=== PATIENT | male | born 1955 | race Caucasian/White ===

== ENCOUNTER → 2017-05-18 15:53 | Outpatient (CLI) | payer BC | END | disposition home or self-care (01) | LOC: D.CT 15:53 | DX: R10.9 Unspecified abdominal pain (principal) ==

== ENCOUNTER → 2017-06-02 13:39 | Outpatient (CLI) | payer BC | END | disposition home or self-care (01) | LOC: D.CT 13:39 | DX: K57.20 Diverticulitis of large intestine with perforation and abscess without bleeding (principal) ==

== ENCOUNTER 2017-06-07 11:30 | Inpatient (IN) | payer BC ==
[~2017-06-07] VITALS: Ht 177.8 cm; Wt 104.3 kg
--- NOTE | ~2017-06-07 | HP ---
PATIENT: AMBER STACY MEDICAL RECORD: [id number] ACCOUNT: [id number] LOCATION:D[facility] [id number] : 53 ADMISSION DATE: 06/07/17 HISTORY AND PHYSICAL EXAMINATION HISTORY OF PRESENT ILLNESS: A 61-year-old gentleman. He presented to the office today with worsening abdominal pain and discomfort. He has been treating diverticulitis as an outpatient for the last couple of weeks now and last CT, although there was some improvement that was done on June 02 that still showed that there was a little diverticular abscess fluid collection superior to the sigmoid colon. Because of the slightly worsening of symptoms and ongoing issues, we will put him in the hospital for general surgery, interventional radiology consultation, and IV antibiotics. PAST MEDICAL HISTORY: He does have a past medical history rather that is significant for diverticulitis flareups in the past. He also has a history of diabetes mellitus, hypertension, hyperlipidemia. HOME MEDICATIONS: Include lisinopril 10 mg daily, metformin 500 mg b.i.d., Crestor 5 mg daily. He has been on oral Levaquin, metronidazole and hydrocodone p.r.n. for pain, just in the last week or 2 weeks now. FAMILY HISTORY: Father with myocardial infarction and mother had breast cancer. SOCIAL HISTORY: Denies tobacco, alcohol or drug use. He is . No significant surgical history. REVIEW OF SYSTEMS: CONSTITUTIONAL: There was fevers and he has not had fevers over the last week or so. HEENT: Denies any visual or auditory changes. No sore throat, rhinorrhea or dysphagia. CARDIOPULMONARY: Denies any chest pain, palpitations, orthopnea. No cough or hemoptysis. PULMONARY: No history of asthma, COPD. No cough or hemoptysis. GASTROINTESTINAL: Ongoing abdominal discomfort, mostly left lower quadrant, suprapubic area. Denies diarrhea or melena or hematochezia, has had some nausea. GENITOURINARY: Denies any dysuria or hematuria. MUSCULOSKELETAL: No joint swelling or erythema. NEUROLOGIC: No history of CVA, syncope or seizure. PHYSICAL EXAMINATION: VITAL SIGNS: Today, weight is 228, blood pressure 130/74, pulse of 80, respiration 18, temperature 98.4. HEENT: PERRLA, EOMI. Pharynx clear. NECK: Supple. No JVD or adenopathy, no thyromegaly. HEART: Regular rate and rhythm. No murmurs, rubs or gallops. LUNGS: Clear with no rhonchi, rales or wheezing. ABDOMEN: Soft, normoactive bowel sounds. He was tender to palpation in the left lower quadrant and suprapubic area to palpation with no rebound, guarding or rigidity. EXTREMITIES: No clubbing, cyanosis or edema. NEUROLOGICAL: Grossly intact. HISTORY AND PHYSICAL [id number] AMBER STACY ASSESSMENT AND PLAN: 1. Diverticulitis with a diverticular abscess. We are going to admit the patient. Repeat CT scan today. IV fluid, IV antibiotic, hold off on his metformin for now, we will use sliding scale insulin, consult general surgery, interventional radiology. TRANSINT:[id number] Voice Confirmation ID: [id number] DOCUMENT ID: [id number] VICKY SMALLS DO CC: [id number] DICTATION DATE: 06/07/17 1136 PATIENT CARRIER: 06/07/17 1224 ADM IN [id number] [place] [address]
--- NOTE | 2017-06-07 12:14 | NUR ---
RECEIVED TO ROOM 2226 AT THIS TIME FROM 'S OFFICE VIA WHEELCHAIR. AT BEDSIDE. 20G IV SITED TO PT'S RIGHT HAND X1 ATTEMPT. PT TOLERATED WITHOUT COMPLAINTS. ASSESSMENT AND HISTORY OBTAINED PER FLOWSHEET. CARE PLAN AND ROOM ORIENTATION REVIEWED WITH PT AND . DENIES QUESTIONS OR CONCERNS. REMAINS NPO FOR CT SCAN OF THE ABOMEN. CALL LIGHT IN REACH. WILL CONTINUE WITH PLAN OF CARE.
[2017-06-07 12:16] VITALS: BP 154/87; BMI 33.0
[2017-06-07 12:25] LABS: BASOPHILS 0.2 % (0-2); EOSINOPHILS 0.4 % (0-7); HEMOGLOBIN 14.9 g/dL (13.5-17.5); IMMATURE GRANULOCYTES 0.4 % (0-5); LYMPHOCYTES 9.6 % (15-50); MCHC 33.1 g/dL (31.0-37.0); MCV 90.7 fL (80.0-100.0); NEUTROPHILS 81.4 % (40-80); PLATELET COUNT 234 10x3/uL (130-400); RBC 4.96 10x6/uL (4.20-6.10); RDW 14.1 % (11.5-14.5); WBC 10.6 10x3/uL (4.8-10.8)
[2017-06-07 12:45] LABS: ALBUMIN 3.2 g/dL (3.4-5.0); ALKALINE PHOSPHATASE 52 U/L (46-116); ALT (SGPT) 31 U/L (10-68); BILIRUBIN - TOTAL 0.47 mg/dL (0.2-1.3); CALC OSMOLALITY 269 mosm/kg (275-300); CALCIUM 8.6 mg/dL (8.5-10.1); CARBON DIOXIDE 30.8 mmol/L (21.0-32.0); CHLORIDE - SERUM 98 mmol/L (98-107); CREATININE - SERUM 0.9 mg/dL (0.6-1.3); GLUCOSE 126 mg/dL (74-106); POTASSIUM - SERUM 4.3 mmol/L (3.5-5.1); PROTEIN - SERUM 8.1 g/dL (6.4-8.2); SODIUM 135 mmol/L (136-145); UREA NITROGEN 8 mg/dL (7-18); eGFR NON AFRICAN AMERICAN > 90 mL/min (90-120)
[2017-06-07 12:49] LABS: APTT 43.1 SECONDS (22.8-39.4)
[2017-06-07 13:04] LABS: INR 1.24 (0.85-1.17); PROTIME 15.5 SECONDS (11.6-15.0)
[2017-06-07 13:24] LABS: HEMOGLOBIN A1C 6.6 % (4.8-6.0)
--- NOTE | 2017-06-07 13:37 | NUR ---
TAKEN TO CT SCAN AT THIS TIME.
--- NOTE | 2017-06-07 13:50 | NUR ---
BACK TO ROOM AT THIS TIME. MEDICATIONS STARTED PER ORDERS. IV TO RIGHT HAND REMAINS PATENT. CALL LIGHT IN REACH. WILL CONTINUE WITH PLAN OF CARE.
[2017-06-07] MEDS ORDERED: GLUCOPHAGE500 MG PO (14:41)
[2017-06-07] MEDS ORDERED: LISINOPRIL10 MG PO (14:43)
[2017-06-07] MEDS ORDERED: CRESTOR5 MG PO (14:43)
[2017-06-07] MEDS ORDERED: LEVAQUIN750 MG PO (14:44)
[2017-06-07] MEDS ORDERED: FLAGYL500 MG PO (14:44)
[2017-06-07 16:42] VITALS: BP 133/85
--- NOTE | 2017-06-07 17:00 | NUR ---
MADE NPO AT THIS TIME PER DR WEBSTER'S ORDER. DENIES NEEDS AT THIS TIME. CALL LIGHT IN REACH, WILL CONTINUE WITH PLAN OF CARE.
[2017-06-07 20:00] VITALS: BP 154/81
[2017-06-08] VITALS: BP 143/80
--- NOTE | 2017-06-08 00:20 | NUR ---
PATIENT IS AWAKE, ALERT AND ORIENTED X'S 4. RESPIRATIONS ARE EVEN AND UNLABORED ON ROOM AIR. NO SIGNS OF DISTRESS NOTED. BED IN LOWEST POSITION, CALL LIGHT IN REACH. BED RAILS UP X'S 2. PATIENT DENIES NEEDS.
[2017-06-08 04:00] VITALS: BP 157/93
[2017-06-08 04:33] LABS: BASOPHILS 0.3 % (0-2); HEMATOCRIT 40.1 % (42.0-54.0); HEMOGLOBIN 13.4 g/dL (13.5-17.5); IMMATURE GRANULOCYTES 0.3 % (0-5); LYMPHOCYTES 27.6 % (15-50); MCH 30.1 pg (26.0-34.0); MCHC 33.4 g/dL (31.0-37.0); MCV 90.1 fL (80.0-100.0); MEAN PLATELET VOLUME 9.3 fL (7.4-10.4); MONOCYTES 13.5 % (2-11); NEUTROPHILS 57.3 % (40-80); PLATELET COUNT 216 10x3/uL (130-400); RBC 4.45 10x6/uL (4.20-6.10); RDW 14.3 % (11.5-14.5)
[2017-06-08 04:37] LABS: WBC 6.7 10x3/uL (4.8-10.8)
[2017-06-08 04:47] LABS: ALBUMIN 2.7 g/dL (3.4-5.0); ALKALINE PHOSPHATASE 42 U/L (46-116); CALC OSMOLALITY 276 mosm/kg (275-300); CALCIUM 8.4 mg/dL (8.5-10.1); CARBON DIOXIDE 31.7 mmol/L (21.0-32.0); CHLORIDE - SERUM 103 mmol/L (98-107); CREATININE - SERUM 0.8 mg/dL (0.6-1.3); GLUCOSE 117 mg/dL (74-106); SODIUM 139 mmol/L (136-145); UREA NITROGEN 6 mg/dL (7-18); eGFR NON AFRICAN AMERICAN > 90 mL/min (90-120)
[2017-06-08 04:50] LABS: ALT (SGPT) 23 U/L (10-68)
--- NOTE | 2017-06-08 08:15 | NUR ---
ASSESSMENT PER FLOW SHEET.PT WITHOUT DISTRES.DR. WEBSTER TO SEE PT. CLEAR LIQUID DIET OK. PT STATES PAIN 5/10 SCALE TO ABDOMEN.PT STAES INT AND FEELS LIKE GAS PAIN.MEDS ORDERED PER DEC.CALL LIGHT IN REACH.
[2017-06-08 08:54] VITALS: BP 153/103
[2017-06-08 11:55] VITALS: BP 153/89
[2017-06-08 14:57] VITALS: Ht 177.8 cm; Wt 104.3 kg
[2017-06-08 15:48] VITALS: BP 157/96
--- NOTE | 2017-06-08 18:02 | NUR ---
REMAINS WITHOUT NEEDS,TOLERATING CLEAR LIQUID DIET. AT BEDSIDE.CONT PLAN OF CARE
[2017-06-08] MEDS ORDERED: PROTONIX40 MG PO (19:17)
[2017-06-08 20:00] VITALS: BP 161/94
--- NOTE | 2017-06-08 22:00 | NUR ---
PATIENT RESTING IN BED AND DENIES NEEDS AT THIS TIME. BED IN LOWEST POSITION AND CALL LIGHT WITHIN REACH. ENCOURAGED THE PATIENT TO CALL IF HE HAS NEEDS.
[2017-06-09] VITALS: BP 165/96
[2017-06-09 04:00] VITALS: BP 142/88
[2017-06-09 05:37] LABS: BASOPHILS 0.6 % (0-2); EOSINOPHILS 2.1 % (0-7); HEMATOCRIT 41.7 % (42.0-54.0); HEMOGLOBIN 13.6 g/dL (13.5-17.5); IMMATURE GRANULOCYTES 0.1 % (0-5); LYMPHOCYTES 27.1 % (15-50); MCH 29.8 pg (26.0-34.0); MCHC 32.6 g/dL (31.0-37.0); MCV 91.2 fL (80.0-100.0); MEAN PLATELET VOLUME 9.4 fL (7.4-10.4); NEUTROPHILS 58.1 % (40-80); PLATELET COUNT 210 10x3/uL (130-400); RBC 4.57 10x6/uL (4.20-6.10); RDW 14.4 % (11.5-14.5); WBC 7.2 10x3/uL (4.8-10.8)
[2017-06-09 06:28] LABS: ALBUMIN 2.8 g/dL (3.4-5.0); ALKALINE PHOSPHATASE 39 U/L (46-116); ALT (SGPT) 28 U/L (10-68); BILIRUBIN - TOTAL 0.53 mg/dL (0.2-1.3); CALC OSMOLALITY 276 mosm/kg (275-300); CALCIUM 8.1 mg/dL (8.5-10.1); CARBON DIOXIDE 29.3 mmol/L (21.0-32.0); CHLORIDE - SERUM 104 mmol/L (98-107); CREATININE - SERUM 0.7 mg/dL (0.6-1.3); GLUCOSE 117 mg/dL (74-106); POTASSIUM - SERUM 4.5 mmol/L (3.5-5.1); PROTEIN - SERUM 6.9 g/dL (6.4-8.2); SODIUM 140 mmol/L (136-145); UREA NITROGEN 5 mg/dL (7-18); eGFR NON AFRICAN AMERICAN > 90 mL/min (90-120)
--- NOTE | 2017-06-09 07:23 | NUR ---
CM MET WITH PATIENT REGARDING D/C NEEDS AND PLANS. PATIENT STATED HE IS AND HIS (ABHINAV) WILL DRIVE HIM HOME AT DISCHARGE. PATIENT STATED HE HAS NO STEPS TO ENTER HOME AND A STAIRCASE INSIDE HOME W/RAILS. PATIENT STATED HE IS INDEPENDENT WITH HIS CARE AND HAS A BUILT IN SHOWER CHAIR, BS COMMODE, AND CANE AT HOME IF NEEDED. PATIENTS PCP IS DR. SMALLS AND PHARMACY IS [facility]. PATIENT SIGNED THE ALESHA FORM FOR [facility]. PATIENT IS NEEDING IV ABX FOR [address] SMALLS. CM WILL SEND THE ORDER TO [facility] TODAY. CM WILL CONTINUE TO FOLLOW PATIENT WITH D/C NEEDS AND PLANS. PCP DR. SERINA URBAN AT [facility]- [phone] [facility]- [phone] ABHINAV () [phone]
[2017-06-09 08:53] VITALS: BP 146/98
[2017-06-09] MEDS ORDERED: MERREM 1 GM/NS 11 G1 IV (12:08)
--- NOTE | 2017-06-09 12:11 | NUR ---
CM REASSESSMENT NOTE: PATIENT IS DISCHARGING HOME TODAY/ DRIVING. [facility] WILL SEE PATIENT TODAY FOR IV ABX TEACHING. MAKENZIE BLANTON IS NOTIFYING BREEZY WITH TIME OF DELIVERY OF ABX. CM NOTIFIED BOTH BREEZY AND MAKENZIE BLANTON REGARDING PATEINTS MIDLINE PLACEMENT.
[2017-06-09] MEDS ORDERED: PROTONIX40 MG PO (12:21)
[2017-06-09] MEDS ORDERED: LISINOPRIL10 MG PO (12:21)
[2017-06-09] MEDS ORDERED: GLUCOPHAGE500 MG PO (12:22)
[2017-06-09] MEDS ORDERED: CRESTOR5 MG PO (12:22)
--- NOTE | 2017-06-09 14:33 | NUR ---
DISCHARGE INSTRUCTIONS,STATES UNDERSTANDING.IV DCD WITH CATH INTACT.LEFT UNIT VIA WHEELCHAIR
== END 2017-06-09 14:34 | disposition home health service (06) | DRG 392 ==
LOC: D.MS 11:30
PROVIDERS: ADMIT Family Medicine
DX: K57.20 Diverticulitis of large intestine with perforation and abscess without bleeding (principal); N13.30 Unspecified hydronephrosis; E11.9 Type 2 diabetes mellitus without complications; I10 Essential (primary) hypertension; E78.5 Hyperlipidemia, unspecified

== ENCOUNTER → 2017-06-21 08:42 | Outpatient (CLI) | payer BC ==
[2017-06-08 14:57] VITALS: BMI 33.0
[~2017-06-21 08:42] MED LIST: CRESTOR5 MG PO; FLAGYL500 MG PO; GLUCOPHAGE500 MG PO; LEVAQUIN750 MG PO; LISINOPRIL10 MG PO; MERREM 1 GM/NS 11 G1 IV; PROTONIX40 MG PO
== END | disposition home or self-care (01) ==
LOC: D.CT 06-17 11:30
DX: K57.81 Diverticulitis of intestine, part unspecified, with perforation and abscess with bleeding (principal)

== ENCOUNTER 2017-06-23 05:11 | Inpatient (IN) | payer BC ==
[2017-06-22 13:41] LABS: HEMATOCRIT 41.6 % (42.0-54.0); HEMOGLOBIN 13.7 g/dL (13.5-17.5); MCH 30.6 pg (26.0-34.0); MCHC 32.9 g/dL (31.0-37.0); MCV 93.1 fL (80.0-100.0); MEAN PLATELET VOLUME 9.5 fL (7.4-10.4); RBC 4.47 10x6/uL (4.20-6.10); RDW 13.7 % (11.5-14.5); WBC 6.4 10x3/uL (4.8-10.8)
[2017-06-22 13:54] LABS: CALC OSMOLALITY 285 mosm/kg (275-300); CALCIUM 9.2 mg/dL (8.5-10.1); CARBON DIOXIDE 33.2 mmol/L (21.0-32.0); CHLORIDE - SERUM 104 mmol/L (98-107); CREATININE - SERUM 0.7 mg/dL (0.6-1.3); GLUCOSE 108 mg/dL (74-106); POTASSIUM - SERUM 4.5 mmol/L (3.5-5.1); SODIUM 144 mmol/L (136-145); UREA NITROGEN 7 mg/dL (7-18); eGFR NON AFRICAN AMERICAN > 90 mL/min (90-120)
[2017-06-23] VITALS (8 sets, daily range): BP systolic 106–147; BP diastolic 59–86; BMI 29.6; BMI 31.9
[~2017-06-23] VITALS: Ht 177.8 cm; Wt 100.7 kg
--- NOTE | 2017-06-23 01:30 | NUR ---
PATIENT'S OSTOMY BAG LEAKED THROUGH THE WAFFER. APPROXIMATELY 40-50ML OF BLOOD LEAKED OUT. CONTRACT ATTORNEY AND I CLEANED UP PATIENT, CHANGED HIS GOWN AND THE FLOOR. CHANGED PATIENT'S OSTOMY WAFFER AND BAG. ASSISTED PATIENT BACK TO BED. HE DENIES FURTHER NEEDS AT THIS TIME.
--- NOTE | 2017-06-23 14:13 | NUR ---
DR STAFFORD FINISHED AT 1340. DR. WEBSTER IN AT THIS TIME. SECOND TIME OUT FOR AT 1344.
--- NOTE | 2017-06-23 17:40 | NUR ---
RECEIVED TO ROOM 2208 FROM RECEOVERY ROOM. LONG CATH LEAKING SO LINENS CHANGED WITH ASSISTANCE FROM RECOVERY NURSE. RLQ ISATU DRAIN WITH DRS INTACT. LLQ COLOSTOMY. MIDLINE INCISION. CALL LIGHT IN REACH.
--- NOTE | 2017-06-23 18:00 | NUR ---
IV FLUIDS, IV ABX, AND MORPHINE ANESTHESIOLOGY RESIDENT INITIATED. AT BEDSIDE. CALL LIGHT IN REACH. VSS. SCDs TO BLE. WILL CONTINUE WITH PLAN OF CARE.
--- NOTE | 2017-06-23 20:00 | NUR ---
PATIENT RESTING QUIETLY WITH EYES CLOSED. RESPIRATIONS EVEN AND UNLABORED ON ROOM AIR. WOKE PATIENT UP TO COMPLETE ASSESSMENT. PATIENT AROUSED EASILY. PATIENT STATED "WILL YOU PUSH MY PAIN BUTTON." I EXPLAINED TO THE PATIENT THAT HE IS THE ONLY ONE ALLOWED TO PUSH THE BUTTON, AND EXPLAINED SAFETY REASONS. HE VERBALIZED UNDERSTANDING AND HE PUSHED THE SALES RELATIONSHIP MANAGER BUTTON. EMPTIED 60ML OF BLOODY DRAINAGE FROM ISATU DRAIN. THERE IS THIN RED BLOODY DRAINAGE PRESENT IN THE OSTOMY BAG- DID NOT EMPTY, APPEARS TO BE ABOUT 10ML. LONG CATHETER DRAINING TO GRAVITY, ABOUT 600ML IN COLLECTION BAG, URINE IS LIGHT RED IN COLOR. SCDS ARE ON BILATERAL LEGS. BED ALARM ON. PATIENT DENIES NEEDS AT THIS TIME.
--- NOTE | 2017-06-23 23:25 | NUR ---
RESTING QUIETLY WITH EYES CLOSED. NO SIGNS OF DISTRESS NOTED. HOB 30 DEGREES. BED IN LOWEST POSITION, CALL LIGHT IN REACH. BED RAILS UP X'S 2.
--- NOTE | 2017-06-23 23:54 | NUR ---
EMPTIED 20ML FROM ISATU DRAIN. COMPRESSED. PATIENT DENIES NEEDS.
[2017-06-24] VITALS: BP 148/88
--- NOTE | 2017-06-24 | NUR ---
SPOKE WITH PATIENT ABOUT AMBULATING IN THE BORDEN. HE WAS AGREEABLE. HIS GAIT IS STEADY. MINIMAL ASSIST REQUIRED. HE WALKED ABOUT 5 STEPS THEN STATED HE FEELS NAUSEOUS. PATIENT AMBULATING BACK TO HIS ROOM, AND SAT IN THE CHAIR. OFFERED HIM ZOFRAN, HE REFUSED. HE STATED HE IS FEELING BETTER NOW THAT HE IS SITTING DOWN. GAVE PATIENT HIS CALL LIGHT. HE DENIES FURTHER NEEDS AT THIS TIME.
[2017-06-24 04:00] VITALS: BP 153/85
[2017-06-24 05:37] LABS: BASOPHILS 0.1 % (0-2); EOSINOPHILS 0 % (0-7); HEMATOCRIT 38.4 % (42.0-54.0); HEMOGLOBIN 12.8 g/dL (13.5-17.5); IMMATURE GRANULOCYTES 0.2 % (0-5); LYMPHOCYTES 3.9 % (15-50); MCH 30.2 pg (26.0-34.0); MCHC 33.3 g/dL (31.0-37.0); MEAN PLATELET VOLUME 10.1 fL (7.4-10.4); MONOCYTES 4.5 % (2-11); NEUTROPHILS 91.3 % (40-80); PLATELET COUNT 273 10x3/uL (130-400); RBC 4.24 10x6/uL (4.20-6.10); RDW 14.1 % (11.5-14.5)
[2017-06-24 05:43] LABS: MCV 90.6 fL (80.0-100.0); WBC 19.1 10x3/uL (4.8-10.8)
[2017-06-24 05:48] LABS: ALBUMIN 2.8 g/dL (3.4-5.0); ALKALINE PHOSPHATASE 45 U/L (46-116); ALT (SGPT) 22 U/L (10-68); CALC OSMOLALITY 281 mosm/kg (275-300); CALCIUM 8.5 mg/dL (8.5-10.1); CARBON DIOXIDE 27.6 mmol/L (21.0-32.0); CHLORIDE - SERUM 103 mmol/L (98-107); CREATININE - SERUM 0.7 mg/dL (0.6-1.3); POTASSIUM - SERUM 4.2 mmol/L (3.5-5.1); PROTEIN - SERUM 7.1 g/dL (6.4-8.2); SODIUM 139 mmol/L (136-145); UREA NITROGEN 8 mg/dL (7-18); eGFR NON AFRICAN AMERICAN > 90 mL/min (90-120)
[2017-06-24 05:51] LABS: GLUCOSE 215 mg/dL (74-106)
--- NOTE | 2017-06-24 06:26 | OP ---
PATIENT NAME: AMBER STACY MEDICAL RECORD: [id number] :51 LOCATION:[facility] [place] ADMISSION DATE:06/23/17 SURGEON: BECKY WEBSTER MD DATE OF OPERATION: 06/23/2017 SURGEON: Becky Webster MD. PREOPERATIVE DIAGNOSIS: Diverticulitis with intraabdominal abscess. POSTOPERATIVE DIAGNOSES: 1. Diverticulitis with intraabdominal abscess. 2. Peritonitis. ANESTHESIA: General. COMPLICATIONS: None. SPECIMENS: Sigmoid colon. Case was grossly contaminated. ESTIMATED BLOOD LOSS: 150 cc. OPERATION: Laparoscopic mobilization of splenic flexure, laparoscopic sigmoid colectomy with end colostomy (Isabel's procedure). OPERATIVE COURSE: After consent was obtained, the patient was taken to the operating room and placed in the supine position on the operating table. Next, general anesthesia was given via endotracheal intubation after a timeout was taken to confirm the correct patient and procedure. Prior to begin the procedure, cystoscopy and ureteral stent insertion was performed by Dr. Green. The abdomen was prepped and draped in typical sterile fashion and Ioban dressing was placed. Local anesthetic was injected just below the umbilicus. A stab incision was made with 11-blade scalpel. Using a 5-mm bladeless optical trocar, the abdomen was entered under direct laparoscopic vision. Adequate pneumoperitoneum was achieved. The abdominal cavity was inspected. No evidence of bowel injury. No evidence of bleeding. The sigmoid colon was densely, densely adherent to the left pelvic side wall and pelvis. At this time, all remaining trocars were placed, 5 mm trocar in the suprapubic position, 5-mm trocar in the right lower quadrant and 5-mm trocar in the left lower quadrant. As the sigmoid colon was attempted to be mobilized from the pelvic side wall, a large abscess was encountered, it was suctioned and irrigated. At this time, we started to our proximal laparoscopic, the descending colon was mobilized off the pelvic side wall. The white line of Toldt was taken using the Harmonic scalpel. This continued along to the level of the splenic flexure, mobilizing the splenic flexure. Next, a mesenteric window was created at the healthy appearing portion of the descending and sigmoid colon. At this time, the sigmoid colon was completely immobile by laparoscopy. At this time, a hand port was placed in the lower midline position to facilitate. The sigmoid colon was gradually removed from the pelvic side wall, combination of blunt dissection and electrocautery as well as Harmonic scalpel. Once the sigmoid colon was mobilized off the pelvic side wall, it was mobilized posteriorly. The ureteral stents were palpated, although they were not able to be identified post and within the retroperitoneum. At this time, the GelPort was removed. The sigmoid colon was extracorporealized. At the previous mesenteric window, the descending OPERATIVE REPORT [id number] STACY,AMBER colon was transected using the 75-mm linear cutting stapler with a green load stapler. The mesentery was taken with the Harmonic scalpel. Meticulous dissection continued until the rectum was identified. Once the rectum was identified, a second firing of the 75-mm linear cutting stapler was performed. The remaining portion of mesentery was taken with Harmonic scalpel and the sigmoid colectomy specimen was passed off the field and sent for permanent pathology. There were multiple diffuse bleeding surfaces, the pelvis and pelvic side wall packed with Fibrillar and held in place for 10 minutes. Once we had control bleeding, the rectum was minimally mobilized. The suture line was reinforced with the 0 Prolene suture. A 6-inch tag was left in place to facilitate for later colostomy reversal. At this time, the abdomen was copiously irrigated and suctioned. Additional mesentery was taken to facilitate link for the colostomy. The abdominal cavity was copiously irrigated and suctioned. A ISATU drain was placed in the pelvis to the right lower quadrant trocar site. There is no evidence of bowel injury. No evidence of bleeding. The pelvic abscess appeared appropriately drained. There is no further purulent debris noted. At this time, the left lower quadrant trocar was removed. A circular skin incision was made. Dissection continued to the level of the external oblique fascia, cruciate incision was made. The muscles were gently split. The peritoneum was opened using electrocautery. The area was bluntly dilated. The Lidia was placed through the opening and grabbed the staple line of the descending colon. Descending colon was extracorporealized. At this time the sponge count was completed which was correct. Additional abdominal irrigation was performed. Incisional irrigation was performed. The GelPort was removed. The lower midline incision was closed with a #1 looped PDS. Skin was closed with mel. Trocar incisions were closed with mel. At this time, the ostomy was matured in a standard Karla fashion using 3-0 Vicryl suture. At the end of the case, all needle and instrument counts were correct. No complications occurred. The patient was extubated and transferred to the PACU in stable condition. TRANSINT:[id number] Voice Confirmation ID: [id number] DOCUMENT ID: [id number] BECKY WEBSTER MD at 0626 CC: [id number] DICTATION DATE: 06/23/17 164 RAND BUTTER: 06/24/17 0111 ADM IN [id number] [place] [address]
--- NOTE | 2017-06-24 07:30 | NUR ---
ASSESSMENT COMPLETE. IV TO L WRIST PATENT. LR INFUSING AT 100 CC/HR VIA PUMP. ADVANCED RESEARCH PROGRAMS DIRECTOR MORPHINE 1-10-10 IN USE FOR PAIN CONTROL. DRESSING INTACT TO LOWER ABDOMEN. ISATU X 1 TO R UPPER ABDOMEN. LONG PATENT DRAINING BLOODY URINE. MIDLINE TO R AC. SCDS IN USE TO BILAT LEGS.
[2017-06-24 07:59] VITALS: BP 163/93
--- NOTE | 2017-06-24 09:34 | OP ---
PATIENT NAME: AMBER STACY MEDICAL RECORD: [id number] :53 LOCATION:D[facility] [place] ADMISSION DATE:06/23/17 SURGEON: ELBERT STAFFORD MD DATE OF OPERATION: 06/23/2017 SURGEON: Elbert Stafford MD ANESTHESIA: General anesthesia by Toño Rincon CRNA. PREOPERATIVE DIAGNOSIS: Sigmoid diverticulitis. POSTOPERATIVE DIAGNOSIS: Sigmoid diverticulitis. PROCEDURES: Cystoscopy and bilateral ureteral stent insertion. FINDINGS: Obstructive BPH, single ureteral orifices bilaterally. No bladder tumors, trabeculated bladder. CLINICAL HISTORY: This is a 61-year-old male with history of diverticulitis, now comes for a hemicolectomy. Dr. Jean Baptiste has requested insertion of ureteral stents to assist during his surgery. DESCRIPTION OF PROCEDURE: The patient has been given induction of general anesthesia and he has been given his IV antibiotics. He was placed in the dorsal lithotomy position, prepped and draped. A 21-Vietnamese cystoscope with 30-degree lens was used for visualization using normal saline for irrigation. The penile urethra was nonobstructive and no lesions are found. He has a vascular obstructive BPH. Going into the bladder, single ureteral orifices were found. A 5-Vietnamese open-ended ureteral catheters were placed up to the renal pelvis level on each side. The cystoscope was then removed, leaving the catheter in place. A 16-Vietnamese Smith catheter was then inserted into the bladder. The balloon was inflated with 10 cc of sterile water. An adapter allowed the ureteral catheters to draining into the Smith catheter drainage channel in bag. At the end of the case, Dr. Jean Baptiste can remove the ureteral stent by pulling them out. TRANSINT:[id number] Voice Confirmation ID: [id number] DOCUMENT ID: [id number] ELBERT STAFFORD MD at 0934 CC: [id number] DICTATION DATE: 06/23/17 1333 WEB MARKETING STRATEGIST: 06/23/17 1840 ADM IN [id number] [place] [id number]
--- NOTE | 2017-06-24 10:30 | NUR ---
COLOSTOMY LEAKING AROUND SIDE OF WAFER. CHIO,WOUND CARE NURSE, BY TO CHANGE COLOSTOMY WAFER AND BAG. FAMILY AT BEDSIDE.
[2017-06-24 10:43] VITALS: Ht 177.8 cm; Wt 100.7 kg
--- NOTE | 2017-06-24 10:46 | NUR ---
Called to pt room d/t leaking ostomy appliance. Removed old appliance and cleaned and dried skin. Applied skin protectant to surrounding skin and used stoma paste to fill crevices/wrinkles in skin. Cut wafer to 2-1/4" and applied over fistula/attached bag. Pt tolerated well. Education provided on skin care and discussed the stoma (red/beefy in color, will shrink in size as healing begins) Pt and voiced understanding. Will continue monitoring.
[2017-06-24 11:46] VITALS: BP 149/85
--- NOTE | 2017-06-24 14:00 | NUR ---
TOLERATING CLEAR LIQUIDS IN SMALL AMOUNTS. DENIES ANY NEEDS AT THIS TIME.
--- NOTE | 2017-06-24 18:13 | NUR ---
RESTING QUIETLY IN BED. CONTINUES TO TOLERATE CLEAR LIQUIDS IN SMALL AMOUNTS. SMALL AMOUNT OF BROWNISH LIQUID NOTED IN COLOSTOMY BAG. NO LEAKAGE NOTED AROUND COLOSTOMY WAFER AT THIS TIME.
[2017-06-24 20:00] VITALS: BP 126/70
[2017-06-25] VITALS: BP 135/72
--- NOTE | 2017-06-25 01:09 | NUR ---
FLUSHED MIDLINE WITH 10ML SALINE FLUSH. READILY FLUSHED. CHANGED THE DRESSING, STERILE TECHNIQUE MAINTAINED.
[2017-06-25 03:43] VITALS: BP 158/77
[2017-06-25 05:44] LABS: HEMOGLOBIN 10.9 g/dL (13.5-17.5); MCV 90.9 fL (80.0-100.0); MEAN PLATELET VOLUME 9.9 fL (7.4-10.4); PLATELET COUNT 240 10x3/uL (130-400); RBC 3.63 10x6/uL (4.20-6.10); RDW 14.4 % (11.5-14.5); WBC 20.1 10x3/uL (4.8-10.8)
[2017-06-25 05:55] LABS: ALBUMIN 2.5 g/dL (3.4-5.0); ALKALINE PHOSPHATASE 44 U/L (46-116); CALCIUM 8.2 mg/dL (8.5-10.1); CARBON DIOXIDE 28.9 mmol/L (21.0-32.0); CHLORIDE - SERUM 102 mmol/L (98-107); CREATININE - SERUM 0.6 mg/dL (0.6-1.3); POTASSIUM - SERUM 3.9 mmol/L (3.5-5.1); PROTEIN - SERUM 6.4 g/dL (6.4-8.2); SODIUM 138 mmol/L (136-145); UREA NITROGEN 7 mg/dL (7-18); eGFR NON AFRICAN AMERICAN > 90 mL/min (90-120)
[2017-06-25 05:57] LABS: ALT (SGPT) 16 U/L (10-68); CALC OSMOLALITY 275 mosm/kg (275-300); GLUCOSE 140 mg/dL (74-106)
[2017-06-25 06:37] LABS: LYMPHOCYTES 8 % (15-50); MONOCYTES 7 % (2-11); NEUTROPHILS 79 % (40-80); PLATELET ESTIMATE NORMAL
--- NOTE | 2017-06-25 07:30 | NUR ---
ASSESSMENT COMPLETE. IV TO L WRIST PATENT. LR INFUSING AT 100 CC/HR VIA PUMP. RED CAP MORPHINE 1-10-10 IN USE FOR PAIN CONTROL. R MIDLINE SL. DRESSING INTACT TO LOWER ABDOMEN. ISATU X 1 TO R ABDOMEN. COLOSTOMY TO L ABDOMEN. DENIES ANY NEEDS AT PRESENT.
[2017-06-25 08:18] VITALS: BP 157/94
--- NOTE | 2017-06-25 08:40 | NUR ---
LONG CATHETER DC'D. CATHETER TIP INTACT.
--- NOTE | 2017-06-25 10:30 | NUR ---
AMBULATING IN HALLWAY WITH FAMILY.
--- NOTE | 2017-06-25 12:52 | NUR ---
VOIDING WITHOUT DIFFICULTY. TOLERATING CLEAR LIQUID DIET. VISITING WITH FAMILY. DENIES ANY NEEDS AT THIS TIME.
[2017-06-25 13:03] VITALS: BP 131/79
--- NOTE | 2017-06-25 13:30 | NUR ---
Patient Name: AMBER STACY Admission Status: Elective Accout number: [id number] Admission Date: 06-23-2017 : 1955 Admission Diagnosis:DVTRCLI OF LG INT W PERFORATION AND ABSCESS W/O BLEEDIN Attending: BECKY WEBSTER Current LOS: 2 Anticipated DC Date: Planned Disposition: Home with Home Health Primary Insurance: [employer] OUT OF STATE Discharge Planning Comments: CM met with patient and (Polly) to assess discharge planning needs. Patient lives independently at home where he plans to return too. His Polly will be the dolly driver home. Patient does not use any DME, but is current with [employer] . Patient has 20 steps in his home, but states he vu not have any trouble with it. CM will continue to follow and assist as needed PCP: Serina Scruggs in [facility] [place] () [phone] [facility] Account Manager Education: Mariza Downs * Is the patient Alert and Oriented? Yes 0 * How many steps to enter\exit or inside your home? 20 0 * PCP SERINA 0 * Pharmacy [facility] * Preadmission Environment Home with Family 0 * ADLs Independent 0 * Equipment None 0 * List name and contact numbers for known caregivers / representatives who currently or will assist patient after discharge: POLLY () [phone] 0 * Community resources currently utilized Home Health 0 * Please name any agencies selected above. [facility] 0 * Additional services required to return to the preadmission environment? Yes 0 * Can the patient safely return to the preadmission environment? Yes 0 * Has this patient been hospitalized within the prior 30 days at any hospital? No 0 Grand Total: 0
--- NOTE | 2017-06-25 14:08 | NUR ---
NO CHANGES NOTED AT PRESENT. NOTIFIED RESPIRATORY THERAPIST THAT PATIENT DOES NOT WANT TO BE WOKE UP DURING THE NIGHT FOR BREATHING TREATMENTS.
[2017-06-25 16:21] VITALS: BP 130/74
--- NOTE | 2017-06-25 17:32 | NUR ---
DENIES ANY NEEDS AT THIS TIME. CONTINUES VOIDING WITHOUT DIFFICULTY.
--- NOTE | 2017-06-25 18:30 | NUR ---
COMPLAINING OF FEELING HOT. TEMP 100.1 ORALLY. REMINDED ON USE OF IS. BLANKET REMOVED AND ROOM COOLED.
[2017-06-25 20:00] VITALS: BP 139/82
--- NOTE | 2017-06-25 23:15 | NUR ---
PATIENT REQUESTED TO BE LEFT ALONE THROUGH THE NIGHT SO HE CAN GET SOME SLEEP. HE STATED THAT HE DOESN'T NEED ANYTHING BUT SLEEP. HE INFORMED THE SLITTER CREASER SLOTTER OPERATOR THAT HE WANTED TO BE LEFT ALONE.
[2017-06-26 04:00] VITALS: BP 165/74
[2017-06-26 06:11] LABS: BASOPHILS 0.1 % (0-2); EOSINOPHILS 0.4 % (0-7); HEMATOCRIT 33.2 % (42.0-54.0); HEMOGLOBIN 10.9 g/dL (13.5-17.5); IMMATURE GRANULOCYTES 0.4 % (0-5); LYMPHOCYTES 8.8 % (15-50); MCH 30.1 pg (26.0-34.0); MCHC 32.8 g/dL (31.0-37.0); MCV 91.7 fL (80.0-100.0); MONOCYTES 6.4 % (2-11); NEUTROPHILS 83.9 % (40-80); PLATELET COUNT 242 10x3/uL (130-400); RBC 3.62 10x6/uL (4.20-6.10); RDW 14.1 % (11.5-14.5); WBC 14.1 10x3/uL (4.8-10.8)
[2017-06-26 06:25] LABS: ALBUMIN 2.4 g/dL (3.4-5.0); ALKALINE PHOSPHATASE 49 U/L (46-116); ALT (SGPT) 14 U/L (10-68); CALC OSMOLALITY 276 mosm/kg (275-300); CALCIUM 8.3 mg/dL (8.5-10.1); CARBON DIOXIDE 30.7 mmol/L (21.0-32.0); CHLORIDE - SERUM 102 mmol/L (98-107); CREATININE - SERUM 0.6 mg/dL (0.6-1.3); GLUCOSE 141 mg/dL (74-106); POTASSIUM - SERUM 3.7 mmol/L (3.5-5.1); PROTEIN - SERUM 6.7 g/dL (6.4-8.2); SODIUM 139 mmol/L (136-145); UREA NITROGEN 5 mg/dL (7-18); eGFR NON AFRICAN AMERICAN > 90 mL/min (90-120)
--- NOTE | 2017-06-26 06:49 | NUR ---
PATIENT IN BED WITH IV INTACT. NO COMPLAINTS OR SIGNS OF DISTRESS AT THIS TIME. CALL LIGHT WITHIN REACH.
--- NOTE | 2017-06-26 08:02 | NUR ---
RESTING, DENIES NEEDS, BED LOWEST POSITION, CALL LIGHT IN REACH, WILL CONTINUE TO MONITOR
[2017-06-26 08:23] VITALS: BP 151/97
[2017-06-26 12:51] VITALS: BP 140/93
--- NOTE | 2017-06-26 12:59 | NUR ---
ISATU DRAIN PULLED, MINIMAL DISCOMFORT, WILL CONTINUE TO MONITOR
--- NOTE | 2017-06-26 16:53 | NUR ---
LYING IN BED,WITHOUT DISTRESS.DENIES NEEDS.CELL CHANGER USE INSTRUCTED FOR PAIN
[2017-06-26 17:03] VITALS: BP 132/72
[2017-06-26 21:18] VITALS: BP 167/97
--- NOTE | 2017-06-27 03:02 | NUR ---
PT RESTING QUIETLY, EYES CLOSED. RESP EVEN, UNLABORED. NO DISTRESS NOTED. CONTINUE FILTER TANK TENDER HELPER HEAD'S PLAN OF CARE.
[2017-06-27 04:04] VITALS: BP 150/90
[2017-06-27 05:15] LABS: BASOPHILS 0.3 % (0-2); EOSINOPHILS 1.3 % (0-7); HEMATOCRIT 34.5 % (42.0-54.0); HEMOGLOBIN 11.6 g/dL (13.5-17.5); IMMATURE GRANULOCYTES 0.1 % (0-5); LYMPHOCYTES 13.9 % (15-50); MCH 30.2 pg (26.0-34.0); MCHC 33.6 g/dL (31.0-37.0); MCV 89.8 fL (80.0-100.0); MONOCYTES 13.9 % (2-11); NEUTROPHILS 70.5 % (40-80); PLATELET COUNT 288 10x3/uL (130-400); RBC 3.84 10x6/uL (4.20-6.10); RDW 13.5 % (11.5-14.5)
[2017-06-27 05:17] LABS: WBC 7.1 10x3/uL (4.8-10.8)
[2017-06-27 05:40] LABS: ALBUMIN 2.3 g/dL (3.4-5.0); ALKALINE PHOSPHATASE 50 U/L (46-116); ALT (SGPT) 11 U/L (10-68); BILIRUBIN - TOTAL 0.97 mg/dL (0.2-1.3); CALC OSMOLALITY 271 mosm/kg (275-300); CALCIUM 8.3 mg/dL (8.5-10.1); CARBON DIOXIDE 30.4 mmol/L (21.0-32.0); CHLORIDE - SERUM 99 mmol/L (98-107); CREATININE - SERUM 0.6 mg/dL (0.6-1.3); GLUCOSE 130 mg/dL (74-106); POTASSIUM - SERUM 3.7 mmol/L (3.5-5.1); PROTEIN - SERUM 6.9 g/dL (6.4-8.2); SODIUM 136 mmol/L (136-145); eGFR NON AFRICAN AMERICAN > 90 mL/min (90-120)
--- NOTE | 2017-06-27 05:42 | NUR ---
IV IN LEFT WRIST LEAKING. REMOVED WITH CATHETER TIP INTACT. RE-SITED TO LEFT FA USING 20 GUAGE CATHETER IN ONE STICK. IV FLUIDS RE-STARTED.
[2017-06-27 05:44] LABS: UREA NITROGEN 7 mg/dL (7-18)
--- NOTE | 2017-06-27 07:30 | NUR ---
SLEEPING, AROUSES TO VOICE, DENIES NEEDS, BED LOWEST POSITION, CALL LIGHT IN REACH, WILL CONTINUE TO MONITOR
[2017-06-27 08:57] VITALS: BP 169/95
--- NOTE | 2017-06-27 09:40 | NUR ---
PATIENT ALERT IN MID ALONZO POSITION. NO SIGNS OF DISTRESS NOTED. FAMILY PRESENT. SIDE RAILS UP X2. BED IN LOW POSITION. CALL LIGHT IN REACH. BED IN LOW POSITION. DENIES NEEDS.
[2017-06-27 12:35] VITALS: BP 136/85
[2017-06-27] MEDS ORDERED: HYDROCODON-ACE1 EAC7 PO (14:19)
[2017-06-27] MEDS ORDERED: COLACE100 MG PO (14:19)
--- NOTE | 2017-06-27 16:11 | NUR ---
DISCHARGE PAPERS AND INSTRUCTIONS GIVEN TO PT AND , QUESTIONS ANSWERED, EDUCATED ON CHANGING COLOSTOMY BAG, IV REMOVED TIP INACT, DISCHARGED PER WC WITH BELONGINGS
--- NOTE | 2017-06-27 17:22 | NUR ---
LATE ENTRY 1445 PATIENT FOR DISCHARGE TO HOME W/ [facility]. PLAN FOR RESUMPTION OF SERVICES. CM SPOKE WITH THE SHIPPING TEAM LEADER NURSE, SALVADOR. REVIEWED REFERRAL. UPDATED CLINICAL. FAXED CLINICAL , DISCHARGE INSTRUCTION AND MEDICATIONS TO [phone]. PROVIDED CONTACT PHONE NUMBER FOR CM. SPOKE WITH PRIMARY NURSE, ARVIND, PATIENT WAS GIVEN HIS SECOND DOSE OF [place] PRIOR TO DISCHARGE TO HOME. PATIENT HAS HIS HOME IVAB AT HOME WHICH WERE PROVIDED BY [facility]. ARVIND WAS TO PROVIDE COLOSTOMY INTRUCTION AND COLOSTOMY SUPPLIES TO PATIENT PRIOR TO DISCHARGE. INSTRUCTION WAS GIVEN INITIALLY BY WOUND CARE NURSE ON 06/24/17.
--- NOTE | 2017-06-27 17:40 | NUR ---
PATIENT WILL BE SEEN ON Wednesday06/28/17 BY [facility] PER SALVADOR.
== END 2017-06-27 16:12 | disposition home health service (06) | DRG 330 ==
LOC: D.MS 05:11 → D.SDCHOLD 05:11 → D.MS 17:22
PROVIDERS: Anesthesiology; Urology; ADMIT Surgery
PROC: 0D1M4Z4 Bypass Descending Colon to Cutaneous, Percutaneous Endoscopic Approach (ICD-10-PCS; 2017-06-23)
PROC: 0DNL4ZZ Release Transverse Colon, Percutaneous Endoscopic Approach (ICD-10-PCS; 2017-06-23)
PROC: 0T788DZ Dilation of Bilateral Ureters with Intraluminal Device, Via Natural or Artificial Opening Endoscopic (ICD-10-PCS; principal; 2017-06-23 12:00)
PROC: 0DBN4ZZ Excision of Sigmoid Colon, Percutaneous Endoscopic Approach (ICD-10-PCS; 2017-06-23 12:00)
DX: K57.20 Diverticulitis of large intestine with perforation and abscess without bleeding (principal); N13.8 Other obstructive and reflux uropathy; N13.30 Unspecified hydronephrosis; E11.9 Type 2 diabetes mellitus without complications; I10 Essential (primary) hypertension; E78.5 Hyperlipidemia, unspecified; N40.1 Benign prostatic hyperplasia with lower urinary tract symptoms

== ENCOUNTER → 2017-08-13 09:17 | Outpatient (CLI) | payer BC ==
[2017-06-24 10:43] VITALS: BMI 31.8
[~2017-08-13 09:17] MED LIST changes: +COLACE100 MG PO; +CYCLOBENZAPRINE10 MG PO; +HYDROCODON-ACE1 EAC7 PO; +HYDROCODONE-APA1 TAB PO; +LEVAQUIN500 MG PO
== END | disposition home or self-care (01) ==
LOC: D.LAB 09:17
DX: Z12.5 Encounter for screening for malignant neoplasm of prostate (principal)

== ENCOUNTER → 2017-08-20 09:37 | Outpatient (CLI) | payer BC ==
[2017-06-24 10:43] VITALS: BMI 31.8
== END | disposition home or self-care (01) ==
LOC: D.US 08:30
DX: N13.30 Unspecified hydronephrosis (principal)

== ENCOUNTER → 2017-10-06 07:48 | Outpatient (CLI) | payer BC ==
[2017-06-24 10:43] VITALS: BMI 31.8
== END | disposition home or self-care (01) ==
LOC: D.CT 07:48
DX: K57.32 Diverticulitis of large intestine without perforation or abscess without bleeding (principal)

== ENCOUNTER 2017-10-15 05:56 | Day surgery (SDC) | payer BC ==
[~2017-10-15] VITALS: Ht 177.8 cm; Wt 110.0 kg
[~2017-10-15 05:56] MED LIST changes: -CYCLOBENZAPRINE10 MG PO; -HYDROCODONE-APA1 TAB PO; -LEVAQUIN500 MG PO
[2017-10-15 06:43] VITALS: BP 178/94; Ht 177.8 cm; Wt 110.0 kg
[2017-10-15 07:03] LABS: HEMATOCRIT 47.3 % (42.0-54.0); HEMOGLOBIN 15.4 g/dL (13.5-17.5); MCH 30.4 pg (26.0-34.0); MCHC 32.6 g/dL (31.0-37.0); MCV 93.3 fL (80.0-100.0); MEAN PLATELET VOLUME 9.8 fL (7.4-10.4); RBC 5.07 10x6/uL (4.20-6.10); RDW 13.7 % (11.5-14.5); WBC 6.1 10x3/uL (4.8-10.8)
[2017-10-15 07:23] LABS: CALC OSMOLALITY 280 mosm/kg (275-300); CALCIUM 8.8 mg/dL (8.5-10.1); CARBON DIOXIDE 31.9 mmol/L (21.0-32.0); CHLORIDE - SERUM 102 mmol/L (98-107); CREATININE - SERUM 0.9 mg/dL (0.6-1.3); GLUCOSE 161 mg/dL (74-106); POTASSIUM - SERUM 4.3 mmol/L (3.5-5.1); SODIUM 140 mmol/L (136-145); UREA NITROGEN 10 mg/dL (7-18); eGFR NON AFRICAN AMERICAN 90 mL/min (90-120)
--- NOTE | 2017-10-15 08:10 | NUR ---
COLONOSCOPY DONE VIA COLOSTOMY BAG.
--- NOTE | 2017-10-15 08:33 | NUR ---
PROCTOSCOPY DONE ALSO VIA RECTUM.
--- NOTE | 2017-10-15 12:33 | OP ---
PATIENT NAME: AMBER STACY MEDICAL RECORD: [id number] :51 LOCATION:D.[facility] ADMISSION DATE: SURGEON: BECKY WEBSTER MD DATE OF OPERATION: 10/15/2017 SURGEON: Becky Webster MD PREOPERATIVE DIAGNOSIS: Diverticulitis. POSTOPERATIVE DIAGNOSIS: Diverticulitis. PROCEDURE PERFORMED: Colonoscopy and proctoscopy. ANESTHESIA: Total intravenous anesthesia. COMPLICATIONS: None. SPECIMENS: None. Case was contaminated. OPERATIVE COURSE: After consent was obtained, the patient was taken to the endoscopy suite, timeout was taken to confirm the correct patient and procedure, total intravenous anesthesia was given. The colostomy appliance was removed, a colonoscopy was performed through the colostomy site, the scope was advanced to the cecum. The ileocecal valve was identified and pictured. Approximately 7 minutes was spent withdrawing the scope. There was 2-3 scattered diverticula noted. There were no masses, no polyps, no areas of bleeding. At this time, the patient was placed in the left lateral decubitus position. A flexible scope was placed through the rectum. It was advanced approximately 20 cm at which time the staple line was identified. The rectum appeared healthy. At this time, the scope was removed and the procedure was terminated. At the end of the procedure, all needle and instrument counts were correct. No complications occurred. The patient tolerated the procedure well and was transferred to the recovery room in satisfactory condition. TRANSINT:[id number] Voice Confirmation ID: [id number] DOCUMENT ID: [id number] BECKY WEBSTER MD at 1233 CC: [id number] DICTATION DATE: 10/15/17840 TELESALES AGENT: 10/15/17 0920 [place] [id number] [place] [id number]
--- NOTE | 2017-10-15 17:23 | NUR ---
0950-PT. ESCORTED VIA WHEELCHAIR TO PERSONAL CAR, LEFT WITH DRIVING.
[2017-10-19] MEDS ORDERED: CYCLOBENZAPRINE10 MG PO (11:14)
== END 2017-10-15 09:50 | disposition home or self-care (01) ==
LOC: D.OPS 05:56
PROVIDERS: Anesthesiology
DX: K57.92 Diverticulitis of intestine, part unspecified, without perforation or abscess without bleeding (principal); I10 Essential (primary) hypertension; E11.9 Type 2 diabetes mellitus without complications; Z01.812 Encounter for preprocedural laboratory examination

== ENCOUNTER 2017-10-20 06:03 | Inpatient (IN) | payer BC ==
[2017-10-19 11:47] LABS: HEMATOCRIT 47.6 % (42.0-54.0); HEMOGLOBIN 15.9 g/dL (13.5-17.5); MCH 31.1 pg (26.0-34.0); MCHC 33.4 g/dL (31.0-37.0); MEAN PLATELET VOLUME 9.9 fL (7.4-10.4); RBC 5.12 10x6/uL (4.20-6.10); RDW 13.4 % (11.5-14.5); WBC 7.1 10x3/uL (4.8-10.8)
[2017-10-19 11:59] LABS: CALC OSMOLALITY 278 mosm/kg (275-300); CALCIUM 9.6 mg/dL (8.5-10.1); CARBON DIOXIDE 32.8 mmol/L (21.0-32.0); CHLORIDE - SERUM 100 mmol/L (98-107); CREATININE - SERUM 0.9 mg/dL (0.6-1.3); GLUCOSE 176 mg/dL (74-106); POTASSIUM - SERUM 4.2 mmol/L (3.5-5.1); SODIUM 137 mmol/L (136-145); UREA NITROGEN 16 mg/dL (7-18); eGFR NON AFRICAN AMERICAN 90 mL/min (90-120)
[~2017-10-20] VITALS: Ht 177.8 cm; Wt 108.6 kg
--- NOTE | ~2017-10-20 | OP ---
PATIENT NAME: AMBER STACY MEDICAL RECORD: [id number] :51 LOCATION:D[facility] ADMISSION DATE:10/20/17 SURGEON: MARTIN DIALLO MD DATE OF OPERATION: 10/20/2017 ASSISTANCE NOTE I assisted Dr. Jean Baptiste with a colostomy takedown. It was necessary to have 2 attending surgeons present during the procedure during the anastomosis. My involvement in the operation included insertion of the EEA stapling device through the anus and up to the termination of the rectum. I then deployed the arrow and Dr. Jean Baptiste connected this to the anvil. I then tightened down on the EEA stapler and then fired. I then loosened up on the stapler and removed it. I then forcibly injected air up through the anus into the rectum to pneumatically check the anastomosis after Dr. Jean Baptiste had filled the pelvis with normal saline. That ended my involvement with the operative procedure. TRANSINT:[id number] Voice Confirmation ID: [id number] DOCUMENT ID: [id number] MARTIN DIALLO MD at 1327 CC: [id number] DICTATION DATE: 10/20/17 1649 DYSLEXIA TEACHER: 10/20/17 [address] [facility] [address] [place] [address]
--- NOTE | ~2017-10-20 | OP ---
PATIENT NAME: AMBER STACY MEDICAL RECORD: [id number] :51 LOCATION:D[facility] ADMISSION DATE:10/20/17 SURGEON: BECKY WEBSTER MD DATE OF OPERATION: 10/20/2017 SURGEON: Becky Webster MD PREOPERATIVE DIAGNOSIS: History of perforated diverticulitis with Isabel's procedure. POSTOPERATIVE DIAGNOSES: History of perforated diverticulitis with Isabel's procedure. PROCEDURE PERFORMED: 1. Laparoscopic mobilization of splenic flexure. 2. Colostomy reversal. ACCOUNTING ANALYST SURGEON: Elbert Bhatti MD ANESTHESIA: General. COMPLICATIONS: None. SPECIMENS: Descending colon. Case was contaminated. ESTIMATED BLOOD LOSS: 400 cc. OPERATIVE COURSE: After consent was obtained, the patient was taken to the operating room and placed in the supine position on the operating table. Next, general anesthesia was given via endotracheal intubation after a timeout was performed to confirm the correct patient and procedure. The abdomen was prepped and draped in typical sterile fashion and Ioban dressing was placed. Local anesthetic was injected just above the umbilicus. A stab incision was made with an 11-blade scalpel. Using a 5-mm bladeless optical trocar, the abdomen was entered under direct laparoscopic vision. Adequate pneumoperitoneum was achieved. The abdominal cavity was inspected. No evidence of bowel injury. No evidence of bleeding. At this time, 3 additional trocars were placed, one trocar in to the left lateral quadrant, another 5-mm trocar in the epigastric region. Laparoscopic mobilization of the splenic flexure was then performed. Once the splenic flexure was fully mobilized, a lower midline abdominal incision was made. Mobilization of splenic flexure occurred using the Harmonic scalpel device. Once the hand assist Gelport was then placed, the descending colon was mobilized off the pelvic side wall. The white line of Toldt was taken down using the Harmonic scalpel. Lysis of adhesions was performed in the pelvis to get all loops of small bowel dissected from the pelvis. At this time, the Prolene stay suture was identified. Next, the colostomy elliptical incision was made around the colostomy. Dissection continued to the level of the external oblique fascia using electrocautery. The colostomy was circumferentially dissected using combination of electrocautery and sharp Metzenbaum scissor dissection. Once the colostomy was circumferentially freed, a 25 mm anvil was placed into the ostomy opening. A 75 mm ALYSON was used to transect the proximal 4 inches of colon, which was sent for permanent pathology. The colon was returned to the fascial defect in to the abdominal cavity. The fascial defect was then closed with #1 looped and 0 looped Prolene. A colotomy was made and the anvil was delivered through the colotomy. The rectum was irrigated with iodine. The OPERATIVE REPORT [id number] AMBER STACY rectal sizers were serially placed. The 25-mm anvil was then inserted in the rectum. The spike was deployed. The spike was connected to the anvil and the EEA stapler was closed and fired and was removed. Immediately within pelvis, there was a large amount of stool noted. The pelvis was copiously irrigated and suctioned. There was a 50% defect in the posterior wall of the EEA anastomosis. At this time, the anastomosis was taken down with sharp scissors. The edges were freshened using Metzenbaum scissors. The rectal stump was closed using 0 Vicryl suture. At this time, Dr. Bhatti performed an intraoperative consultation. Once the rectal stump was closed, Dr. Bhatti, placed a 25-mm EEA stapling device into the rectum and deployed the spike. A new colotomy was created. The 25-mm anvil was placed into the new colonic site. The anvil was attached to the spike. The EEA stapler was closed with mel and fired. The stapler was removed. A bowel clamp was placed on the sigmoid colon. The pelvis was filled with irrigation. The rectum was insufflated until the rectum and colon were taut. There was no evidence of leak. There were no air bubbles identified. At this time, the staple line was reinforced using interrupted 3-0 Vicryl suture. Yaya was placed in to the pelvis. The anastomosis was reinforced with Tisseel. A ISATU drain was placed into the pelvis and delivered out to the right lower quadrant of the abdominal wall. At this time, the fascia was closed using #1 looped PDS. Incisions were closed with mel. At the end of the case, all needle and instrument counts were correct. No complications occurred. The patient was extubated and transferred to the PACU in stable condition. TRANSINT:[id number] Voice Confirmation ID: [id number] DOCUMENT ID: [id number] BECKY WEBSTER MD at 1033 CC: [id number] DICTATION DATE: 10/20/17 1445 CLAIM TAKER: 10/20/172128 ADM IN [place] [id number] [place] [id number]
--- NOTE | ~2017-10-20 | DS ---
PATIENT:AMBER TANG :51 MEDICAL RECORD: [id number] DISCHARGE SUMMARY ADMISSION DATE: 10/20/17 DISCHARGE DATE: 10/30/17 DATE OF ADMISSION: 10/20/2017 DATE OF DISCHARGE: 10/30/2017 ADMITTING PHYSICIAN: Becky Webster MD ADMISSION DIAGNOSIS: Elective colostomy reversal. HOSPITAL COURSE: Mr. Tang is a 62-year-old gentleman who was admitted to the hospital for an elective laparoscopic assisted colostomy takedown. The patient tolerated the procedure well. Postoperatively, he was transferred to the floor. During his postoperative course, he developed some low-grade fevers. CT of the abdomen and pelvis was obtained, which showed some air tracking along the colorectal anastomosis. He was taken back to the OR for diverting loop ileostomy and abdominal washout, which he tolerated well. Postoperatively, the patient was transferred to the floor. At this time, he was started on a clear liquid diet. Over the next several days, his diet was advanced as tolerated. His ostomy was functioning with gas and stool. He was seen and evaluated during his hospitalization by physical therapy and case management. At the time of discharge, the patient was tolerating regular diet. His pain was well controlled on oral pain medicine. He is ambulating independently. A wound VAC was then placed in the midline incision. DISCHARGE MEDICATIONS: Please see electronic medical record. DISCHARGE CONDITION: Stable. DISCHARGE DIET: As tolerated, no restrictions. WOUND CARE: Wound VAC, will be managed by home health services. DISCHARGE INSTRUCTIONS: The patient may shower, soap and water to the wound daily, no bath for 2 weeks. FOLLOWUP: With Dr. Webster in 2 weeks. TRANSINT:[id number] Voice Confirmation ID: [id number] DOCUMENT ID: [id number] BECKY WEBSTER MD at 0817 CC: [id number] DICTATION DATE: 12/06/17 1737 BEREAVEMENT PROGRAM COORDINATOR: 12/07/17 0720 DIS IN 10/30/[address] [address]
--- NOTE | ~2017-10-20 | OP ---
PATIENT NAME: AMBER STACY MEDICAL RECORD: [id number] :51 LOCATION:D[facility] ADMISSION DATE:10/20/17 SURGEON: BECKY WEBSTER MD DATE OF OPERATION: 10/20/2017 SURGEON: Becky Webster MD PREOPERATIVE DIAGNOSIS: Colorectal anastomotic leak, peritonitis. POSTOPERATIVE DIAGNOSIS: Colorectal anastomotic leak, peritonitis. PROCEDURE PERFORMED: Exploratory laparotomy, abdominal washout, diverting loop ileostomy, and flexible sigmoidoscopy. SURGEON: Becky Webster MD (JJ) ANESTHESIA: General. COMPLICATIONS: None. SPECIMENS: None. Case was grossly contaminated. OPERATIVE COURSE: After consent was obtained, the patient was taken to the operating room and placed in the supine position on the operating table. Next, the general anesthesia was given via endotracheal intubation. The patient was placed in the low lithotomy position. The rectum was prepped and draped in typical sterile fashion. A flexible sigmoidoscope was used, it was advanced approximately 10-15 cm, at which time the colorectal anastomosis was identified. There was a small opening. The anastomosis was able to be traversed making a small defect in the anastomotic ring accounting for probably less than 5% of the total anastomosis was opened. There was some drainage noted. At this time, the scope was removed. The abdomen was then prepped and draped in typical sterile fashion. Previous mel were removed. The previous midline abdominal incision was opened. Prolene sutures were removed with scissors. The abdomen was opened. Adhesions were bluntly dissected with. An Arcadio retractor was placed. The anastomosis was identified. The area in question on the sigmoidoscope was identified in the anterior portion of the donut. This was repaired using a 3-0 Stratafix suture in a continuous fashion. Prior to closure, all the edges were sharpened with Metzenbaum scissors. The defect was oversewn with 3-0 Stratafix suture. The suture line was then imbricated using 3-0 silk suture. Tisseel was placed around the anastomosis. A ISATU drain was placed into the anterior rectal space and into the left lower quadrant. The pelvis was copiously irrigated and suctioned. The terminal ileum and cecum were identified approximately 10-15 cm from the ileocecal valve, a loop of small bowel was identified. There appeared to be enough mesenteric length. A right lower quadrant incision was made, dissection at the level of the external oblique fascia. A cruciate incision was made and the peritoneum was incised using electrocautery. The dissection was bluntly dissected. A Lidia clamp was passed over the area. The loop of the terminal ileum was grasped and delivered the anterior wall. It was secured to the skin edges using 3-0 Vicryl suture and a bridge. At this time, midline abdominal incision was closed using the 0 looped PDS. A wound VAC was placed into the subcutaneous tissue. The diverting loop ileostomy was then opened using electrocautery. Ostomy bag was OPERATIVE REPORT [id number] AMBER STACY placed. The ISATU drain was placed to bulb suction. At the end of the case, all needle and instrument counts were correct. No complications occurred. The patient extubated and transferred to the PACU in stable condition. TRANSINT:[id number] Voice Confirmation ID: [id number] DOCUMENT ID: [id number] BECKY WEBSTER MD at 0933 CC: [id number] DICTATION DATE: 10/25/171815 SOLAR DESIGNER/INSTALLER: 10/26/17 0012 ADM IN [facility] [address] [place] [address]
[~2017-10-20 06:03] MED LIST changes: +CYCLOBENZAPRINE10 MG PO
[2017-10-20 08:23] VITALS: BP 124/81; BMI 34.5
[2017-10-20 16:09] VITALS: BP 129/80
[2017-10-21 04:00] VITALS: BP 155/93
[2017-10-21 06:24] LABS: BASOPHILS 0.1 % (0-2); EOSINOPHILS 0 % (0-7); HEMATOCRIT 45.1 % (42.0-54.0); HEMOGLOBIN 14.6 g/dL (13.5-17.5); IMMATURE GRANULOCYTES 0.2 % (0-5); LYMPHOCYTES 9.8 % (15-50); MCH 30.7 pg (26.0-34.0); MCHC 32.4 g/dL (31.0-37.0); MCV 94.7 fL (80.0-100.0); MEAN PLATELET VOLUME 9.9 fL (7.4-10.4); MONOCYTES 9.9 % (2-11); PLATELET COUNT 202 10x3/uL (130-400); RBC 4.76 10x6/uL (4.20-6.10); RDW 14.1 % (11.5-14.5)
[2017-10-21 06:36] LABS: WBC 10.2 10x3/uL (4.8-10.8)
[2017-10-21 07:08] LABS: ALBUMIN 2.5 g/dL (3.4-5.0); ALKALINE PHOSPHATASE 33 U/L (46-116); ALT (SGPT) 36 U/L (10-68); BILIRUBIN - TOTAL 0.56 mg/dL (0.2-1.3); CALC OSMOLALITY 278 mosm/kg (275-300); CALCIUM 7.9 mg/dL (8.5-10.1); CHLORIDE - SERUM 104 mmol/L (98-107); GLUCOSE 211 mg/dL (74-106); POTASSIUM - SERUM 4.5 mmol/L (3.5-5.1); PROTEIN - SERUM 5.9 g/dL (6.4-8.2); SODIUM 136 mmol/L (136-145); UREA NITROGEN 14 mg/dL (7-18); eGFR NON AFRICAN AMERICAN 80 mL/min (90-120)
[2017-10-21 07:58] VITALS: BP 134/76
[2017-10-21 12:02] VITALS: BP 151/93
[2017-10-21 14:50] VITALS: BMI 34.2
[2017-10-21 16:14] VITALS: BP 142/82
[2017-10-22] VITALS (7 sets, daily range): BP systolic 120–150; BP diastolic 75–92; Ht 177.8 cm; Wt 108.6 kg
[2017-10-22 06:03] LABS: ALBUMIN 2.2 g/dL (3.4-5.0); ALKALINE PHOSPHATASE 37 U/L (46-116); BILIRUBIN - TOTAL 0.53 mg/dL (0.2-1.3); CALCIUM 8.1 mg/dL (8.5-10.1); CARBON DIOXIDE 29.6 mmol/L (21.0-32.0); CHLORIDE - SERUM 101 mmol/L (98-107); CREATININE - SERUM 0.8 mg/dL (0.6-1.3); POTASSIUM - SERUM 4.1 mmol/L (3.5-5.1); PROTEIN - SERUM 5.7 g/dL (6.4-8.2); SODIUM 134 mmol/L (136-145); eGFR NON AFRICAN AMERICAN > 90 mL/min (90-120)
[2017-10-22 06:10] LABS: ALT (SGPT) 23 U/L (10-68); CALC OSMOLALITY 269 mosm/kg (275-300); GLUCOSE 156 mg/dL (74-106); UREA NITROGEN 10 mg/dL (7-18)
[2017-10-22 06:16] LABS: BASOPHILS 0.1 % (0-2); EOSINOPHILS 0.4 % (0-7); HEMATOCRIT 39.8 % (42.0-54.0); HEMOGLOBIN 12.8 g/dL (13.5-17.5); IMMATURE GRANULOCYTES 0.2 % (0-5); MCH 30.4 pg (26.0-34.0); MCHC 32.2 g/dL (31.0-37.0); MCV 94.5 fL (80.0-100.0); MEAN PLATELET VOLUME 10.2 fL (7.4-10.4); MONOCYTES 9.1 % (2-11); NEUTROPHILS 80.2 % (40-80); PLATELET COUNT 179 10x3/uL (130-400); RBC 4.21 10x6/uL (4.20-6.10); RDW 14.1 % (11.5-14.5); WBC 11.8 10x3/uL (4.8-10.8)
[2017-10-23 01:06] VITALS: BP 156/64
[2017-10-23 07:33] LABS: BASOPHILS 0 % (0-2); EOSINOPHILS 1.2 % (0-7); HEMATOCRIT 37.9 % (42.0-54.0); HEMOGLOBIN 12.3 g/dL (13.5-17.5); IMMATURE GRANULOCYTES 0.1 % (0-5); LYMPHOCYTES 12.3 % (15-50); MCH 30.5 pg (26.0-34.0); MCHC 32.5 g/dL (31.0-37.0); MONOCYTES 8.8 % (2-11); NEUTROPHILS 77.6 % (40-80); PLATELET COUNT 177 10x3/uL (130-400); RBC 4.03 10x6/uL (4.20-6.10); RDW 13.7 % (11.5-14.5)
[2017-10-23 07:35] LABS: WBC 7.8 10x3/uL (4.8-10.8)
[2017-10-23 08:20] LABS: ALBUMIN 2.1 g/dL (3.4-5.0); ALKALINE PHOSPHATASE 47 U/L (46-116); ALT (SGPT) 21 U/L (10-68); BILIRUBIN - TOTAL 0.73 mg/dL (0.2-1.3); CALC OSMOLALITY 272 mosm/kg (275-300); CALCIUM 8.2 mg/dL (8.5-10.1); CARBON DIOXIDE 30.5 mmol/L (21.0-32.0); CHLORIDE - SERUM 100 mmol/L (98-107); GLUCOSE 126 mg/dL (74-106); POTASSIUM - SERUM 3.5 mmol/L (3.5-5.1); PROTEIN - SERUM 6.1 g/dL (6.4-8.2); SODIUM 136 mmol/L (136-145); UREA NITROGEN 11 mg/dL (7-18); eGFR NON AFRICAN AMERICAN 80 mL/min (90-120)
[2017-10-23 08:45] VITALS: BP 142/80
[2017-10-23 12:45] VITALS: BP 127/71
[2017-10-23 17:29] VITALS: BP 144/86
[2017-10-24] VITALS: BP 180/35
[2017-10-24 04:00] VITALS: BP 168/91
[2017-10-24 06:47] LABS: BASOPHILS 0.1 % (0-2); EOSINOPHILS 0.4 % (0-7); HEMATOCRIT 37.9 % (42.0-54.0); HEMOGLOBIN 12.5 g/dL (13.5-17.5); IMMATURE GRANULOCYTES 0.2 % (0-5); LYMPHOCYTES 8.4 % (15-50); MCH 30.6 pg (26.0-34.0); MCV 92.7 fL (80.0-100.0); MEAN PLATELET VOLUME 9.8 fL (7.4-10.4); MONOCYTES 9.1 % (2-11); NEUTROPHILS 81.8 % (40-80); RBC 4.09 10x6/uL (4.20-6.10); RDW 13.5 % (11.5-14.5); WBC 9.4 10x3/uL (4.8-10.8)
[2017-10-24 06:52] LABS: PLATELET COUNT 213 10x3/uL (130-400)
[2017-10-24 07:04] LABS: ALBUMIN 2.2 g/dL (3.4-5.0); ALKALINE PHOSPHATASE 58 U/L (46-116); ALT (SGPT) 22 U/L (10-68); BILIRUBIN - TOTAL 0.65 mg/dL (0.2-1.3); CALC OSMOLALITY 273 mosm/kg (275-300); CARBON DIOXIDE 27.9 mmol/L (21.0-32.0); CHLORIDE - SERUM 100 mmol/L (98-107); CREATININE - SERUM 0.9 mg/dL (0.6-1.3); GLUCOSE 172 mg/dL (74-106); POTASSIUM - SERUM 3.3 mmol/L (3.5-5.1); PROTEIN - SERUM 6.4 g/dL (6.4-8.2); SODIUM 136 mmol/L (136-145); eGFR NON AFRICAN AMERICAN 90 mL/min (90-120)
[2017-10-24 07:05] LABS: UREA NITROGEN 7 mg/dL (7-18)
[2017-10-24 10:47] VITALS: BP 148/89
[2017-10-24 17:00] VITALS: BP 163/93
[2017-10-24 22:16] VITALS: BP 148/78
[2017-10-25 01:22] VITALS: BP 133/74
[2017-10-25 05:19] VITALS: BP 159/86
[2017-10-25 05:26] LABS: BASOPHILS 0.3 % (0-2); EOSINOPHILS 1.9 % (0-7); HEMATOCRIT 35.7 % (42.0-54.0); HEMOGLOBIN 11.7 g/dL (13.5-17.5); IMMATURE GRANULOCYTES 0.3 % (0-5); LYMPHOCYTES 16.8 % (15-50); MCH 30.5 pg (26.0-34.0); MCHC 32.8 g/dL (31.0-37.0); MCV 93.2 fL (80.0-100.0); MEAN PLATELET VOLUME 9.6 fL (7.4-10.4); MONOCYTES 10.2 % (2-11); NEUTROPHILS 70.5 % (40-80); PLATELET COUNT 221 10x3/uL (130-400); RBC 3.83 10x6/uL (4.20-6.10); RDW 13.6 % (11.5-14.5)
[2017-10-25 05:52] LABS: ALBUMIN 2.2 g/dL (3.4-5.0); ALKALINE PHOSPHATASE 62 U/L (46-116); ALT (SGPT) 23 U/L (10-68); BILIRUBIN - TOTAL 0.48 mg/dL (0.2-1.3); CALC OSMOLALITY 276 mosm/kg (275-300); CALCIUM 8.3 mg/dL (8.5-10.1); CARBON DIOXIDE 29.8 mmol/L (21.0-32.0); CHLORIDE - SERUM 101 mmol/L (98-107); GLUCOSE 152 mg/dL (74-106); POTASSIUM - SERUM 3.2 mmol/L (3.5-5.1); PROTEIN - SERUM 6.5 g/dL (6.4-8.2); SODIUM 138 mmol/L (136-145); UREA NITROGEN 6 mg/dL (7-18); eGFR NON AFRICAN AMERICAN 80 mL/min (90-120)
[2017-10-25 12:33] VITALS: BP 138/79
[2017-10-25 16:51] VITALS: BP 145/84
[2017-10-25 19:12] VITALS: BP 169/93
[2017-10-26 04:41] VITALS: BP 125/76
[2017-10-26 06:14] LABS: BASOPHILS 0.2 % (0-2); EOSINOPHILS 0 % (0-7); HEMOGLOBIN 13.4 g/dL (13.5-17.5); IMMATURE GRANULOCYTES 0.6 % (0-5); LYMPHOCYTES 7.1 % (15-50); MCH 30.9 pg (26.0-34.0); MCHC 33.5 g/dL (31.0-37.0); MCV 92.2 fL (80.0-100.0); MEAN PLATELET VOLUME 9.3 fL (7.4-10.4); MONOCYTES 12.6 % (2-11); NEUTROPHILS 79.5 % (40-80); PLATELET COUNT 256 10x3/uL (130-400); RBC 4.34 10x6/uL (4.20-6.10); RDW 13.8 % (11.5-14.5)
[2017-10-26 06:15] LABS: WBC 12.6 10x3/uL (4.8-10.8)
[2017-10-26 07:10] LABS: ANION GAP 13.8 mmol/L (8-16); BILIRUBIN - TOTAL 0.57 mg/dL (0.2-1.3); CALCIUM 8.1 mg/dL (8.5-10.1); CARBON DIOXIDE 26.4 mmol/L (21.0-32.0); CREATININE - SERUM 1.1 mg/dL (0.6-1.3); PROTEIN - SERUM 6.1 g/dL (6.4-8.2)
[2017-10-26 07:11] LABS: POTASSIUM - SERUM 4.2 mmol/L (3.5-5.1)
[2017-10-26 08:26] VITALS: BP 134/87
[2017-10-26 12:27] VITALS: BP 142/79
[2017-10-26 16:51] VITALS: BP 108/78
[2017-10-26 20:51] VITALS: BP 140/80
[2017-10-27 05:44] LABS: BASOPHILS 0.1 % (0-2); EOSINOPHILS 0.4 % (0-7); HEMATOCRIT 36.8 % (42.0-54.0); HEMOGLOBIN 12.4 g/dL (13.5-17.5); LYMPHOCYTES 8.7 % (15-50); MCH 30.8 pg (26.0-34.0); MCHC 33.7 g/dL (31.0-37.0); MCV 91.3 fL (80.0-100.0); MEAN PLATELET VOLUME 9.3 fL (7.4-10.4); MONOCYTES 9.2 % (2-11); NEUTROPHILS 80.6 % (40-80); PLATELET COUNT 289 10x3/uL (130-400); RBC 4.03 10x6/uL (4.20-6.10); RDW 13.6 % (11.5-14.5); WBC 11.2 10x3/uL (4.8-10.8)
[2017-10-27 05:53] VITALS: BP 127/77
[2017-10-27 06:01] LABS: ALBUMIN 1.6 g/dL (3.4-5.0); ALKALINE PHOSPHATASE 54 U/L (46-116); CALCIUM 7.8 mg/dL (8.5-10.1); CARBON DIOXIDE 29.8 mmol/L (21.0-32.0); CHLORIDE - SERUM 95 mmol/L (98-107); GLUCOSE 210 mg/dL (74-106); POTASSIUM - SERUM 3.8 mmol/L (3.5-5.1); PROTEIN - SERUM 5.6 g/dL (6.4-8.2); SODIUM 131 mmol/L (136-145)
[2017-10-27 06:03] LABS: ALT (SGPT) 20 U/L (10-68); CALC OSMOLALITY 266 mosm/kg (275-300); CREATININE - SERUM 0.7 mg/dL (0.6-1.3); UREA NITROGEN 8 mg/dL (7-18); eGFR NON AFRICAN AMERICAN > 90 mL/min (90-120)
[2017-10-27 08:44] VITALS: BP 151/87
[2017-10-27 11:53] VITALS: BP 141/77
[2017-10-27 16:17] VITALS: BP 125/80
[2017-10-27 20:00] VITALS: BP 159/69
[2017-10-28] VITALS: BP 155/68
[2017-10-28 08:33] VITALS: BP 144/83
[2017-10-28 10:52] LABS: BASOPHILS 0.1 % (0-2); EOSINOPHILS 0.8 % (0-7); HEMATOCRIT 35.6 % (42.0-54.0); HEMOGLOBIN 11.8 g/dL (13.5-17.5); IMMATURE GRANULOCYTES 0.8 % (0-5); LYMPHOCYTES 7.6 % (15-50); MCH 30.5 pg (26.0-34.0); MCHC 33.1 g/dL (31.0-37.0); MEAN PLATELET VOLUME 8.9 fL (7.4-10.4); MONOCYTES 8.1 % (2-11); NEUTROPHILS 82.6 % (40-80); RBC 3.87 10x6/uL (4.20-6.10); RDW 13.3 % (11.5-14.5); WBC 10.9 10x3/uL (4.8-10.8)
[2017-10-28 11:03] LABS: CALC OSMOLALITY 271 mosm/kg (275-300); CALCIUM 7.9 mg/dL (8.5-10.1); CARBON DIOXIDE 32.3 mmol/L (21.0-32.0); CHLORIDE - SERUM 95 mmol/L (98-107); GLUCOSE 199 mg/dL (74-106); POTASSIUM - SERUM 3.4 mmol/L (3.5-5.1); SODIUM 134 mmol/L (136-145); UREA NITROGEN 6 mg/dL (7-18); eGFR NON AFRICAN AMERICAN 90 mL/min (90-120)
[2017-10-28 11:07] LABS: PLATELET COUNT 364 10x3/uL (130-400)
[2017-10-28 11:09] LABS: CREATININE - SERUM 0.9 mg/dL (0.6-1.3)
[2017-10-28 12:57] VITALS: BP 114/53
[2017-10-28 17:04] VITALS: BP 147/69
[2017-10-28 20:00] VITALS: BP 112/79
[2017-10-29 04:00] VITALS: BP 125/61
[2017-10-29 06:12] LABS: BASOPHILS 0.1 % (0-2); EOSINOPHILS 0.6 % (0-7); HEMOGLOBIN 11.2 g/dL (13.5-17.5); IMMATURE GRANULOCYTES 0.8 % (0-5); LYMPHOCYTES 12.2 % (15-50); MCH 29.9 pg (26.0-34.0); MCHC 32.9 g/dL (31.0-37.0); MCV 90.9 fL (80.0-100.0); MEAN PLATELET VOLUME 8.7 fL (7.4-10.4); MONOCYTES 10.1 % (2-11); NEUTROPHILS 76.2 % (40-80); PLATELET COUNT 376 10x3/uL (130-400); RBC 3.74 10x6/uL (4.20-6.10); RDW 13.2 % (11.5-14.5); WBC 8.8 10x3/uL (4.8-10.8)
[2017-10-29 06:37] LABS: CALC OSMOLALITY 269 mosm/kg (275-300); CARBON DIOXIDE 31.5 mmol/L (21.0-32.0); CHLORIDE - SERUM 96 mmol/L (98-107); CREATININE - SERUM 0.8 mg/dL (0.6-1.3); GLUCOSE 153 mg/dL (74-106); POTASSIUM - SERUM 3.6 mmol/L (3.5-5.1); SODIUM 135 mmol/L (136-145); eGFR NON AFRICAN AMERICAN > 90 mL/min (90-120)
[2017-10-29 06:38] LABS: UREA NITROGEN 3 mg/dL (7-18)
[2017-10-29 08:16] VITALS: BP 160/60
[2017-10-29 12:57] VITALS: BP 130/70
[2017-10-29] MEDS ORDERED: HYDROCODONE-APA1 TAB PO (15:13)
[2017-10-29] MEDS ORDERED: FLAGYL500 MG PO (15:16)
[2017-10-29] MEDS ORDERED: LEVAQUIN500 MG PO (15:16)
[2017-10-29 16:14] VITALS: BP 134/78
[2017-10-29 20:00] VITALS: BP 127/77
[2017-10-30] VITALS: BP 150/82
[2017-10-30 04:00] VITALS: BP 126/72
[2017-10-30 09:03] VITALS: BP 142/94
== END 2017-10-30 15:30 | disposition home health service (06) | DRG 330 ==
LOC: D.SDCHOLD 06:03 → D.MS 06:03 → D.SDCHOLD 09:30 → D.MS 15:04
PROVIDERS: Anesthesiology; Surgery
PROC: 0DNL4ZZ Release Transverse Colon, Percutaneous Endoscopic Approach (ICD-10-PCS; 2017-10-20)
PROC: 0DBE0ZZ Excision of Large Intestine, Open Approach (ICD-10-PCS; principal; 2017-10-20 09:30)
PROC: 0D1B0Z4 Bypass Ileum to Cutaneous, Open Approach (ICD-10-PCS; 2017-10-25 13:00)
DX: Z43.3 Encounter for attention to colostomy (principal); K57.92 Diverticulitis of intestine, part unspecified, without perforation or abscess without bleeding; K91.89 Other postprocedural complications and disorders of digestive system; Y83.8 Other surgical procedures as the cause of abnormal reaction of the patient, or of later complication, without mention of misadventure at the time of the procedure; Y82.9 Unspecified medical devices associated with adverse incidents

== ENCOUNTER → 2017-12-13 07:38 | Outpatient (CLI) | payer BC ==
[2017-10-22 03:33] VITALS: BMI 34.3
[~2017-12-13 07:38] MED LIST changes: +HYDROCODONE-APA1 TAB PO; +LEVAQUIN500 MG PO
== END | disposition home or self-care (01) ==
LOC: D.RAD 07:38
DX: K57.32 Diverticulitis of large intestine without perforation or abscess without bleeding (principal)

== ENCOUNTER 2017-12-22 09:31 | Inpatient (IN) | payer BC ==
[~2017-12-22] VITALS: Ht 177.8 cm; Wt 105.0 kg
--- NOTE | ~2017-12-22 | OP ---
PATIENT NAME: AMBER STACY MEDICAL RECORD: [id number] :51 LOCATION:D[facility] ADMISSION DATE:12/22/17 SURGEON: BECKY WEBSTER MD DATE OF OPERATION: 12/22/2017 SURGEON: Becky Webster MD PREOPERATIVE DIAGNOSES: 1. Sigmoid diverticulitis. 2. Diabetes. 3. Ileostomy. POSTOPERATIVE DIAGNOSES: 1. Sigmoid diverticulitis. 2. Diabetes. 3. Ileostomy. PROCEDURE PERFORMED: Taken down of diverting loop ileostomy. ANESTHESIA: General. COMPLICATIONS: None. SPECIMENS: Small bowel. ESTIMATED BLOOD LOSS: 100 cc. Case was contaminated. OPERATIVE COURSE: After consent was obtained, the patient was taken to the operating room and placed in the supine position on the operating table. Next, general anesthesia was given via endotracheal intubation after a timeout was performed to confirm the correct patient and procedure. The abdomen was then prepped and draped in typical sterile fashion and Ioban dressing was placed. An elliptical incision was made around the right lower quadrant ileostomy with a 15 blade scalpel. Dissection then continued with electrocautery until the fascia was identified. A combination of deep tissue was dissected off the ileostomy using right angle dissector electrocautery and sharp Metzenbaum scissor dissection. The loop ileostomy was circumferentially dissected, it was freed from the fascia. At this time, an Arcadio retractor was placed. The linear ALYSON stapler was then used to create a [id number] anastomosis. The common enterotomy was closed with a linear ALYSON stapler and the mesentery was taken with a second firing of the ALYSON stapler. The small bowel specimen was sent off the field for permanent pathology. The staple line was then imbricated using 3-0 silk suture. Evicel was applied to the anastomosis. The anastomosis was returned to the abdominal cavity. The small bowel was run for several centimeters and among both loops, there was no evidence of bowel injury and no evidence of bleeding. The small bowel was returned to the abdomen. Yaya was applied. Next, the fascia was closed with a #1 looped PDS. The wound was then copiously irrigated and suctioned. The skin was loosely reapproximated with mel. The wound was packed with moist saline gauze. At the end of the case, all needle and instrument counts were correct. No complications occurred. The patient was extubated and transferred to the PACU in stable condition. TRANSINT:[id number] Voice Confirmation ID: [id number] DOCUMENT ID: [id number] OPERATIVE REPORT [id number] AMBER STACY JAMES J MD at 0813 CC: [id number] DICTATION DATE: 12/22/17 1454 DIRECTOR OF STUDENT AID: 12/22/17 1613 ADM IN [place] [id number] [place] [address]
[2017-12-22 11:15] VITALS: BMI 33.3
[2017-12-22 11:36] LABS: HEMATOCRIT 40.7 % (42.0-54.0); HEMOGLOBIN 13.4 g/dL (13.5-17.5); MCH 30.2 pg (26.0-34.0); MCHC 32.9 g/dL (31.0-37.0); MCV 91.7 fL (80.0-100.0); MEAN PLATELET VOLUME 8.8 fL (7.4-10.4); RBC 4.44 10x6/uL (4.20-6.10); RDW 14.6 % (11.5-14.5); WBC 6.6 10x3/uL (4.8-10.8)
[2017-12-22 11:39] LABS: CALC OSMOLALITY 276 mosm/kg (275-300); CALCIUM 9.1 mg/dL (8.5-10.1); CARBON DIOXIDE 30.8 mmol/L (21.0-32.0); CHLORIDE - SERUM 102 mmol/L (98-107); CREATININE - SERUM 0.9 mg/dL (0.6-1.3); GLUCOSE 116 mg/dL (74-106); POTASSIUM - SERUM 4.6 mmol/L (3.5-5.1); SODIUM 138 mmol/L (136-145); UREA NITROGEN 13 mg/dL (7-18); eGFR NON AFRICAN AMERICAN 90 mL/min (90-120)
[2017-12-22 20:00] VITALS: BP 134/81
[2017-12-23] VITALS: BP 126/74
[2017-12-23 04:00] VITALS: BP 143/80; BP 144/87
[2017-12-23 04:43] LABS: BASOPHILS 0 % (0-2); EOSINOPHILS 0 % (0-7); HEMATOCRIT 38.1 % (42.0-54.0); HEMOGLOBIN 12.5 g/dL (13.5-17.5); IMMATURE GRANULOCYTES 0.3 % (0-5); LYMPHOCYTES 6.7 % (15-50); MCH 30.2 pg (26.0-34.0); MCHC 32.8 g/dL (31.0-37.0); MEAN PLATELET VOLUME 9.4 fL (7.4-10.4); MONOCYTES 6.2 % (2-11); NEUTROPHILS 86.8 % (40-80); PLATELET COUNT 238 10x3/uL (130-400); RBC 4.14 10x6/uL (4.20-6.10); RDW 15.3 % (11.5-14.5)
[2017-12-23 04:49] LABS: WBC 12.6 10x3/uL (4.8-10.8)
[2017-12-23 04:59] LABS: ALBUMIN 3.1 g/dL (3.4-5.0); ALKALINE PHOSPHATASE 39 U/L (46-116); ALT (SGPT) 46 U/L (10-68); BILIRUBIN - TOTAL 0.36 mg/dL (0.2-1.3); CALC OSMOLALITY 272 mosm/kg (275-300); CALCIUM 8.5 mg/dL (8.5-10.1); CARBON DIOXIDE 26.1 mmol/L (21.0-32.0); CHLORIDE - SERUM 100 mmol/L (98-107); GLUCOSE 159 mg/dL (74-106); POTASSIUM - SERUM 4.1 mmol/L (3.5-5.1); PROTEIN - SERUM 7.2 g/dL (6.4-8.2); SODIUM 135 mmol/L (136-145); UREA NITROGEN 12 mg/dL (7-18); eGFR NON AFRICAN AMERICAN 80 mL/min (90-120)
[2017-12-23 07:58] VITALS: BP 127/58
[2017-12-23 12:23] VITALS: BP 128/83
[2017-12-23 15:55] VITALS: BP 107/57
[2017-12-23 20:00] VITALS: BP 149/83
[2017-12-24] VITALS: BP 135/79
[2017-12-24 04:00] VITALS: BP 153/66
[2017-12-24 04:36] VITALS: BP 153/66; Ht 177.8 cm; Wt 105.0 kg
[2017-12-24 09:13] VITALS: BP 148/92
[2017-12-24] MEDS ORDERED: LEVAQUIN500 MG PO (11:11)
[2017-12-24] MEDS ORDERED: NORCO 7.5/325 T1 TA1 PO (11:11)
== END 2017-12-24 13:08 | disposition home or self-care (01) | DRG 331 ==
LOC: D.SDCHOLD 09:31 → D.MS 09:31 → D.SDCHOLD 11:00 → D.MS 16:19
PROVIDERS: Anesthesiology; Surgery
PROC: 0DBB0ZZ Excision of Ileum, Open Approach (ICD-10-PCS; principal; 2017-12-22 12:00)
DX: Z43.2 Encounter for attention to ileostomy (principal); E11.9 Type 2 diabetes mellitus without complications